=== PATIENT | female | born 2000 | race Caucasian/White ===

== ENCOUNTER 2021-09-26 14:24 | Emergency (ER) | payer BC ==
[~2021-09-26] VITALS: Ht 162.6 cm; Wt 73.9 kg
[2021-09-26 14:30] VITALS: BP 138/90
[2021-09-26 16:06] LABS: BASOPHILS % (AUTO) 0.3 % (0.0-2.0); EOSINOPHILS % (AUTO) 0.4 % (0.0-4.0); HEMATOCRIT 39.8 % (36-48); HEMOGLOBIN 13.1 g/dL (12.0-16.0); LYMPHOCYTES # (AUTO) 2.2 K/uL (2.5-16.5); LYMPHOCYTES % (AUTO) 24.7 % (20.5-51.1); MEAN CORPUSCULAR HEMOGLOBIN 30 pg (27-31); MEAN CORPUSCULAR HGB CONC 33 g/dL (33-37); MEAN CORPUSCULAR VOLUME 89.9 fL (80-94); MONOCYTES # (AUTO) 0.6 K/uL (0.8-1.0); MONOCYTES % (AUTO) 6.4 % (1.7-9.3); NEUTROPHILS % (AUTO) 68.2 % (42.2-75.2); PLATELET COUNT (AUTO) 305 K/uL (140-450); RED BLOOD CELL COUNT(AUTO) 4.43 MIL/uL (4.20-5.40); RED CELL DISTRIBUTION WIDTH 13.7 % (11.6-13.7); WHITE BLOOD COUNT (AUTO) 8.8 K/uL (4.5-11.0)
[2021-09-26 16:20] LABS: ALBUMIN 3.9 g/dL (3.4-5.0); CARBON DIOXIDE 26.9 mmol/L (21-32); CREATININE 0.8 mg/dL (0.6-1.3); POTASSIUM 3.9 mmol/L (3.5-5.1); TOTAL BILIRUBIN 0.3 mg/dL (0.0-1.0)
--- NOTE | 2021-09-26 16:50 | NUR ---
PT BIB FAMILY C/O PELVIC PAIN 01/16 WITH LOWER ABDOMEN X2DAYS. SENT BY PMD FOR ER MD OLIVARES
[2021-09-26 17:00] VITALS: BP 122/88
== END 2021-09-26 17:00 | disposition home or self-care (01) ==
LOC: MED 14:24
DX: J02.9 Acute pharyngitis, unspecified (principal); R10.2 Pelvic and perineal pain; R50.9 Fever, unspecified
CPT/HCPCS: 36415; 76856; 80053; 81002; 81025; 85025; 86592; 86703; 87491; 93976; 99284; Q0092

== ENCOUNTER 2022-09-16 15:11 | Emergency (ER) | payer BC ==
[~2022-09-16] VITALS: Ht 162.6 cm; Wt 81.6 kg
[2022-09-16 15:37] VITALS: BP 127/79
[2022-09-16 16:20] LABS: APPEARANCE,URINE CLEAR (CLEAR); BILIRUBIN,URINE NEGATIVE (NEGATIVE); BLOOD, URINE NEGATIVE (NEGATIVE); COLOR,URINE YELLOW (YELLOW); LEUKOCYTE ESTERASE ,URINE NEGATIVE (NEGATIVE); NITRITE, URINE NEGATIVE (NEGATIVE); PH,URINE 6.5 (5.0-9.0); UGLUCOSE NEGATIVE (NEGATIVE)
[2022-09-16] MEDS ORDERED: KETOROLAC 15 MG/ML VIAL IM ONE (18:25)
[2022-09-16 19:05] LABS: BASOPHILS # (AUTO) 0.1 K/uL (0.00-0.22); BASOPHILS % (AUTO) 0.8 % (0.0-2.0); EOSINOPHILS # (AUTO) 0.1 K/uL (0-0.4); EOSINOPHILS % (AUTO) 0.9 % (0.0-4.0); HEMATOCRIT 41.9 % (36-48); HEMOGLOBIN 13.9 g/dL (12.0-16.0); LYMPHOCYTES # (AUTO) 2.9 K/uL (2.5-16.5); LYMPHOCYTES % (AUTO) 23.6 % (20.5-51.1); MEAN CORPUSCULAR HEMOGLOBIN 30 pg (27-31); MEAN CORPUSCULAR HGB CONC 33 g/dL (33-37); MEAN CORPUSCULAR VOLUME 90.7 fL (80-94); MONOCYTES # (AUTO) 0.7 K/uL (0.8-1.0); MONOCYTES % (AUTO) 5.7 % (1.7-9.3); NEUTROPHILS # (AUTO) 8.6 K/uL (1.8-7.7); PLATELET COUNT (AUTO) 327 K/uL (140-450); RED BLOOD CELL COUNT(AUTO) 4.62 MIL/uL (4.20-5.40); RED CELL DISTRIBUTION WIDTH 14.5 % (11.6-13.7); WHITE BLOOD COUNT (AUTO) 12.5 K/uL (4.8-10.8)
[2022-09-16 19:23] LABS: ALBUMIN 4.3 g/dL (3.4-5.0); ANION GAP 14.6 (8-16); CARBON DIOXIDE 27.1 mmol/L (21-32); CREATININE 0.9 mg/dL (0.6-1.3); POTASSIUM 3.7 mmol/L (3.5-5.1); TOTAL BILIRUBIN 0.4 mg/dL (0.0-1.0)
[2022-09-16] MEDS ORDERED: IBUP-2213 PO (22:57)
[2022-09-16 23:01] VITALS: BP 129/83
--- NOTE | 2022-09-16 23:10 | NUR ---
IV removed, catheter intact and site benign. Applied folded 4x4 gauze and tape to stop bleeding.
== END 2022-09-16 23:11 | disposition home or self-care (01) ==
LOC: MED 15:11
DX: N83.202 Unspecified ovarian cyst, left side (principal); R10.31 Right lower quadrant pain
CPT/HCPCS: 36415; 74177; 76856; 80053; 81003; 81025; 83690; 85025; 93976; 96372; 99285; J1885; Q0092; Q9967